=== PATIENT | male | born 1960 | race Caucasian/White ===

== ENCOUNTER 2018-06-01 19:50 | Emergency (ER) | payer BC ==
[2018-06-01 20:06] VITALS: BP 119/69
--- NOTE | 2018-06-01 20:24 | UC ---
Lower Extremity/Ankle HPI - HPI Summary HPI Summary: Patient dropped the bar onto his left foot earlier today patient has pain in the middle of his foot bruising around his second and third toes. Patient is ambulatory neuro motor and circulation is intact distally - History of Current Complaint Chief Complaint: UCLowerExtremity Stated Complaint: LEFT FOOT INJURY Time Seen by Provider: 06/01/18 20:13 Hx Obtained From: Patient Onset/Duration: Sudden Onset Pain Intensity: 5 Pain Scale Used: 0-10 Numeric Aggravating Factor(s): Standing, Ambulation Alleviating Factor(s): Rest, Elevation, Ice, OTC Meds Able to Bear Weight: Yes - Allergies/Home Medications Allergies/Adverse Reactions: Allergies Allergy/AdvReac Type Severity Reaction Status Date / Time No Known Allergies Allergy Verified 06/01/18 19:59 Home Medications: Home Medications Atorvastatin* [Lipitor 20 MG*] 20 mg BEDTIME 06/01/18 [History Confirmed ] PMH/Surg Hx/FS Hx/Imm Hx Previously Healthy: No Endocrine History: Dyslipidemia - Surgical History Surgical History: Yes Surgery Procedure, Year, and Place: LEFT achilles sx. LEFT humerus external fixation. Hernia x2 - Family History Known Family History: Positive: None - Social History Occupation: Employed Full-time Lives: With Family Alcohol Use: Occasionally Substance Use Type: None Smoking Status (MU): Never Smoked Tobacco Review of Systems Constitutional: Negative Skin: Negative Eyes: Negative ENT: Negative Respiratory: Negative Cardiovascular: Negative Gastrointestinal: Negative Genitourinary: Negative Motor: Negative Neurovascular: Negative Musculoskeletal: Arthralgia - Left foot Neurological: Negative Psychological: Negative Is Patient Immunocompromised?: No All Other Systems Reviewed And Are Negative: Yes Physical Exam Triage Information Reviewed: Yes Appearance: Well-Appearing, No Pain Distress, Well-Nourished Vital Signs: Initial Vital Signs Temp 98.7 F 06/01/18 20:00 Pulse 77 06/01/18 20:00 Resp 16 06/01/18 20:00 BP 119/69 06/01/18 20:00 Pulse Ox 100 06/01/18 20:00 Vital Signs Reviewed: Yes Eye Exam: Normal Eyes: Positive: Conjunctiva Clear ENT Exam: Normal ENT: Positive: Normal ENT inspection, Hearing grossly normal. Negative: Trismus , Muffled voice, Hoarse voice, Sinus tenderness Dental Exam: Normal Neck exam: Normal Neck: Positive: Supple, Nontender Respiratory Exam: Normal Respiratory: Positive: Chest non-tender, No respiratory distress, No accessory muscle use Cardiovascular Exam: Normal Cardiovascular: Positive: RRR, Pulses Normal, Brisk Capillary Refill Musculoskeletal Exam: Other Musculoskeletal: Positive: Strength Intact, ROM Intact, Edema @ - Top of left foot is swollen Neurological Exam: Normal Neurological: Positive: Alert, Muscle Tone Normal Psychological Exam: Normal Skin Exam: Other Skin: Positive: Other - Bruising on the top of his left foot Diagnostics - Radiology No standard instances Xray Interpretation: No Acute Changes Radiology Interpretation Completed By: ED Physician, Radiologist - Patient Name : TOMMY ZAMUDIO Medical Record#: [id number] Ordering Physician: Elly Whipple NP Acct.#: [id number] : 1960 Age: 58 Sex: M Location: [facility] Exam Date : 06/01/182013 ADM Status: REG ER Order Information: FOOT LEFT 3+ VWS Accession Number: [id number] CPT: 49708 INDICATION: Left foot pain COMPARISON : None TECHNIQUE: AP, lateral, and oblique views were obtained. FINDINGS: There is no acute bony change. There is postoperative change about the calcaneal insertion. There is a heel spur. There is soft tissue swelling over the dorsum of the forefoot. IMPRESSION: POSTOPERATIVE CHANGE. NO ACUTE BONY FINDINGS. SOFT TISSUE SWELLING DORSUM OF FOREFOOT. <Electronically signed by Tommy Carlson MD in OV> 06/01/182027 Dictated By: Tommy Carlson MD Dictated Date/Time: 03/16 Transcribed Date/Time: 06/01/182021 Copy to: CC:Elly Whipple NP; Cody Mendes MD; Jj Green MD Imaging - [facility] Imaging - [facility] [address] [place] [address] ph ) ph [phone] ph ([phone]) 1 of 1 Lower Extremity Course/Dx - Course Course Of Treatment: Rest ice elevation Tylenol ibuprofen for pain. Patient refused postop shoe. Patient will follow up with PCP or return as needed for continued problems issues or concerns - Differential Dx/Diagnosis Provider Diagnoses: Left foot contusion Discharge - Sign-Out/Discharge Documenting (check all that apply): Discharge/Admit/Transfer - Discharge Plan Condition: Stable Disposition: HOME Patient Education Materials: Ibuprofen (By mouth), Foot Contusion (ED), R.I.C.E. Treatment (ED) Referrals: Cody Mendes MD [Primary Care Provider] - If Needed - Billing Disposition and Condition Condition: STABLE Disposition: Home
--- NOTE | 2018-06-01 20:31 | RAD ---
INDICATION: Left foot pain COMPARISON: None TECHNIQUE: AP, lateral, and oblique views were obtained. FINDINGS: There is no acute bony change. There is postoperative change about the calcaneal insertion. There is a heel spur. There is soft tissue swelling over the dorsum of the forefoot. IMPRESSION: POSTOPERATIVE CHANGE. NO ACUTE BONY FINDINGS. SOFT TISSUE SWELLING DORSUM OF FOREFOOT.
== END 2018-06-01 20:43 | disposition home or self-care (01) ==
LOC: UCCORT 19:50
DX: S90.32XA Contusion of left foot, initial encounter (principal); W20.8XXA Other cause of strike by thrown, projected or falling object, initial encounter; Y93.9 Activity, unspecified; Y92.9 Unspecified place or not applicable; E78.5 Hyperlipidemia, unspecified
CPT/HCPCS: 99201; G0463